=== PATIENT | female | born 1955 | race Caucasian/White ===

== ENCOUNTER 2018-10-01 12:41 | Inpatient (IN) | payer MEDICAID ==
[~2018-10-01] VITALS: Ht 154.9 cm; Wt 80.3 kg
[2018-10-01] MEDS ORDERED: KETOROLAC 15MG/ML VIAL IV ONE (14:45)
[2018-10-01] MEDS ORDERED: SODIUM CHLORIDE 0.9% 1,000 ML IV ONE (14:45)
[2018-10-01 14:57] LABS: EOSINOPHILS % 1.2 % (0.0-5.0); HEMATOCRIT. 39.5 % (36.0-48.0); HEMOGLOBIN. 13.3 g/dL (12.0-16.0); LYMPHOCYTES % 35.2 % (20.0-50.0); MEAN CORPUSCULAR HEMOGLOBIN 31.7 pg (28.0-32.0); MEAN CORPUSCULAR VOLUME 94.3 fL (81.0-99.0); MEAN PLATELET VOLUME 8.2 fl (7.4-10.4); MONOCYTES % 6.5 % (2.0-8.0); NEUTROPHILS % 56.1 % (40.0-76.0); PLATELET 246 x1000/uL (130-400); RED BLOOD CELL COUNT 4.19 mill/uL (4.2-5.4); RED CELL DISTRIBUTION WIDTH 12.8 % (11.6-14.6)
[2018-10-01 15:04] LABS: CHLORIDE 103 mEq/L (98-107)
[2018-10-01 15:59] LABS: CLARITY URINE CLEAR (CLEAR); COLOR URINE YELLOW (YELLOW); KETONES URINE NEGATIVE (NEGATIVE); LEUKOCYTE ESTERASE URINE NEGATIVE (NEGATIVE); NITRITE URINE NEGATIVE (NEGATIVE); OCCULT BLOOD URINE NEGATIVE (NEGATIVE); PH URINE 5.5 (4.5-8.0); PROTEIN URINE NEGATIVE (NEGATIVE); UROBILINOGEN URINE 0.2 E.U./dL (0.2-1.0)
[2018-10-01] MEDS ORDERED: ONDANSETRON HCL 4MG/2ML INJ IV PRN (18:45)
[2018-10-01] MEDS ORDERED: HYDROCODONE/ACETAMINOPHEN 5/325MG TABLET PO PRN (18:45)
[2018-10-01] MEDS ORDERED: ACETAMINOPHEN 325MG TABLET PO PRN ×2 (18:45)
[2018-10-01] MEDS ORDERED: MECLIZINE 25MG TABLET PO PRN (18:45)
[2018-10-01] MEDS: AMLODIPINE 5MG TABLET PO SCH (22:00)
[2018-10-01] MEDS ORDERED: KETOROLAC 15MG/ML VIAL IV PRN (22:00)
[2018-10-02 01:35] VITALS: BP 133/71
[2018-10-02 04:00] VITALS: BP 132/49
[2018-10-02 06:42] LABS: BASOPHILS % 0.7 % (0.0-2.0); EOSINOPHILS % 1.8 % (0.0-5.0); HEMATOCRIT. 34.4 % (36.0-48.0); HEMOGLOBIN. 11.7 g/dL (12.0-16.0); LYMPHOCYTES % 37.9 % (20.0-50.0); MEAN CORPUSCULAR HEMOGLOBIN 32.1 pg (28.0-32.0); MEAN CORPUSCULAR VOLUME 94.6 fL (81.0-99.0); MEAN PLATELET VOLUME 8.5 fl (7.4-10.4); NEUTROPHILS % 49.6 % (40.0-76.0); PLATELET 202 x1000/uL (130-400); RED BLOOD CELL COUNT 3.63 mill/uL (4.2-5.4); RED CELL DISTRIBUTION WIDTH 12.9 % (11.6-14.6)
[2018-10-02 07:23] LABS: CHLORIDE 108 mEq/L (98-107)
[2018-10-02 08:00] VITALS: BP 141/71
[2018-10-02] MEDS ORDERED: LEVO75TA7 MT (08:11)
[2018-10-02] MEDS: LEVOTHYROXINE SODIUM 75MCG TABLET PO SCH (08:30)
[2018-10-02] MEDS: AMLODIPINE 5MG TABLET PO SCH ×2 (08:41→20:03)
[2018-10-02] MEDS ORDERED: SODIUM CHLORIDE 0.9% 1,000 ML IV SCH (11:30)
[2018-10-02 17:52] VITALS: BP_SYST 113; BP_SYST 127; BP_SYST 133; BP_DIAS 40; BP_DIAS 60; BP_DIAS 66
[2018-10-02 20:00] VITALS: BP 115/62
[2018-10-02] MEDS: ATORVASTATIN CALCIUM 40MG TABLET PO SCH (20:03)
[2018-10-03] VITALS (7 sets, daily range): BP systolic 112–160; BP diastolic 52–73
[2018-10-03 06:12] LABS: BASOPHILS % 0.9 % (0.0-2.0); EOSINOPHILS % 2.3 % (0.0-5.0); HEMATOCRIT. 35.1 % (36.0-48.0); HEMOGLOBIN. 11.9 g/dL (12.0-16.0); LYMPHOCYTES % 36.9 % (20.0-50.0); MEAN CORPUSCULAR HEMOGLOBIN 32.3 pg (28.0-32.0); MEAN CORPUSCULAR VOLUME 95.5 fL (81.0-99.0); MEAN PLATELET VOLUME 8.7 fl (7.4-10.4); MONOCYTES % 10.9 % (2.0-8.0); PLATELET 201 x1000/uL (130-400); RED BLOOD CELL COUNT 3.68 mill/uL (4.2-5.4); RED CELL DISTRIBUTION WIDTH 12.9 % (11.6-14.6)
[2018-10-03] MEDS: LEVOTHYROXINE SODIUM 75MCG TABLET PO SCH (06:19)
[2018-10-03 06:33] LABS: CHLORIDE 110 mEq/L (98-107)
[2018-10-03] MEDS: AMLODIPINE 5MG TABLET PO SCH ×2 (08:17→20:37)
[2018-10-03] MEDS ORDERED: SODIUM CHLORIDE 0.9% 1,000 ML IV SCH (13:00)
[2018-10-03] MEDS: ATORVASTATIN CALCIUM 40MG TABLET PO SCH (20:37)
[2018-10-04] VITALS: BP 131/69
[2018-10-04 06:00] VITALS: BP_SYST 119; BP_SYST 120; BP_SYST 128; BP_DIAS 65; BP_DIAS 68; BP_DIAS 69
[2018-10-04] MEDS: LEVOTHYROXINE SODIUM 75MCG TABLET PO SCH (06:14)
[2018-10-04 08:06] VITALS: BP_SYST 106; BP_SYST 112; BP_DIAS 50; BP_DIAS 57; BP_DIAS 66
[2018-10-04] MEDS: AMLODIPINE 5MG TABLET PO SCH (09:46)
[2018-10-04 12:22] VITALS: BP 104/53
[2018-10-04 13:10] VITALS: BP 104/53
== END 2018-10-04 14:20 | disposition home or self-care (01) | DRG 48 ==
LOC: ER 13:13 → EDBEDREQ 17:48 → 5WST 18:23 → EDBEDREQ 18:32 → ENRESERV 21:07 → 5WST 21:40
PROVIDERS: ADMIT Internal Medicine; ATTEND Internal Medicine
DX: G90.8 Other disorders of autonomic nervous system (principal); I11.9 Hypertensive heart disease without heart failure; S09.90XA Unspecified injury of head, initial encounter; M48.02 Spinal stenosis, cervical region; E03.9 Hypothyroidism, unspecified; E78.5 Hyperlipidemia, unspecified; M19.90 Unspecified osteoarthritis, unspecified site; R29.6 Repeated falls; H40.9 Unspecified glaucoma; Z91.81 History of falling; Z98.42 Cataract extraction status, left eye; Z98.41 Cataract extraction status, right eye; W18.39XA Other fall on same level, initial encounter; Y93.89 Activity, other specified; Y92.89 Other specified places as the place of occurrence of the external cause; Y99.8 Other external cause status
CPT/HCPCS: 36415; 70551; 71045; 72141; 80048; 80061; 83880; 84443; 84484; 93005; 93306; 97162; 99285; C1893; J1885; J2405; J7030